=== PATIENT | male | born 1955 | race Caucasian/White ===

== ENCOUNTER 2017-08-23 12:39 | Emergency (ER) | payer OTHER ==
--- NOTE | 2017-08-23 12:56 | EDPHY ---
H & P Stated Complaint: Left CP radiating to left arm since last night. Time Seen by Provider: 08/23/17 12:56 HPI/ROS: CHIEF COMPLAINT: Substernal chest pain HISTORY OF PRESENT ILLNESS: The patient presents to the ED with a 1 day history of substernal chest pain. The patient reports a history of coronary artery disease. He reports a stent x2 approximately 6 years ago. The patient reports his last nuclear stress test was approximately 2 years ago and normal. The patient does have episodic chest pain but states this pain was slightly longer duration. It began at 5 o'clock last night. It has not resolved. The patient denies any pleuritic chest pain. He has had a dry nonproductive cough with this pain. The patient exercises on a daily basis. He has had no history of exertional chest pain or shortness of breath. The patient denies any complaints of fever. He has been compliant with his regular medications. He currently rates his left-sided substernal pain as a 5/10. REVIEW OF SYSTEMS: A comprehensive 10 point review of systems is otherwise negative aside from elements mentioned in the history of present illness. Source: Patient Exam Limitations: No limitations - Personal History Current Tetanus Diphtheria and Acellular Pertussis (TDAP): Yes - Medical/Surgical History Hx Asthma: No Hx Chronic Respiratory Disease: No Hx Diabetes: No Hx Cardiac Disease: Yes Hx Renal Disease: No Hx Cirrhosis: No Hx Alcoholism: No Hx HIV/AIDS: No Hx Splenectomy or Spleen Trauma: No Other PMH: 2 x heart stents - 2011. - Social History Smoking Status: Never smoked - Physical Exam Exam: General Appearance: Alert, no distress Eyes: Pupils equal and round no pallor or injection ENT, Mouth: Mucous membranes moist Respiratory: There are no retractions, lungs are clear to auscultation Cardiovascular: Regular rate and rhythm Gastrointestinal: Abdomen is soft and nontender, no masses, bowel sounds normal Neurological: A&O, normal motor function, normal sensory exam, normal cranial nerves Skin: Warm and dry, no rashes Musculoskeletal: Neck is supple nontender Extremities: symmetrical, full range of motion Constitutional: Initial Vital Signs Temperature (C) 36.4 C 08/23/17 12:40 Heart Rate 63 08/23/17 12:40 Respiratory Rate 16 08/23/17 12:40 Blood Pressure 149/86 H 08/23/17 12:40 O2 Sat (%) 96 08/23/17 12:40 O2 Delivery Mode Room Air Allergies/Adverse Reactions: No Known Allergies Allergy (Unverified 08/27/13 22:26) Home Medications: Medication Instructions Recorded Ascorbic Acid [C-500] 500 mg PO DAILY 08/15/12 Cholecalciferol (Vitamin D3) 1,000 unit PO DAILY 08/15/12 [Vitamin D3] Glucosamine Sulfate [Glucosamine 1,000 mg PO DAILY 08/15/12 Sulfate 500 MG (*)] Levothyroxine [Synthroid 75 mcg 75 mcg PO DAILY06 08/15/12 (*)] Multivitamins [Multivitamin (*)] 1 each PO DAILY 08/15/12 lamoTRIgine [LamICTAL 100 MG (*)] 150 mg PO DAILY 08/15/12 Aspirin EC [Aspirin EC 325 mg (*)] 325 mg PO DAILY #100 tab 08/16/12 Rosuvastatin Calcium [Crestor 5mg] 5 mg PO DAILY #30 08/16/12 Herbals/Supplements -Info Only 1 ea PO HS 09/16/13 Ramipril [Altace 2.5mg (RX)] 2.5 mg PO DAILY 09/16/13 Medical Decision Making - Diagnostics EKG Interpretation: EKG: Complete interpretation has been separately recorded in the [employer] archive. Summary impression: Sinus rhythm Imaging Results: Imaging Impressions Chest X-Ray 08/23/17 13:49 Impression: Minimal airways disease. Otherwise nothing acute. ED Course/Re-evaluation: The patient presents to the ED with greater than 24 hours of atypical constant nonexertional chest pain. The patient's D-dimer test is negative which I feel adequately excludes pulmonary embolism as the patient is low risk by Wells criteria. The patient's EKG is normal. Despite greater than 12 hours of symptoms his troponin is also normal. The patient is nontoxic and well- appearing. The patient's chest x-ray demonstrates no evidence of pneumonia, pneumothorax or obvious mass. Patient presents to the ED with very atypical nonexertional chest pain. At this point time I clinical suspicion for acute coronary syndrome is quite low. I do feel the patient can follow up with Cardiology for consideration of a stress test within the next day. I did discuss this with the patient's regular Cardiology service they will be expecting his telephone call. The patient will return to the emergency department for more significant symptoms, difficulty breathing or other concerns. Differential Diagnosis: Differential diagnosis considered includes acute coronary syndrome, myocardial infarction, metabolic abnormality, dehydration, costochondritis - Data Points Laboratory Results: Laboratory Results 08/23/17 13:10 08/23/17 13:10 08/23/17 08/23/17 08/23/17 13:10 13:10 13:10 WBC 3.88 10^3/uL 10^3/uL (3.80-9.50) RBC 4.84 10^6/uL 10^6/uL (4.40-6.38) Hgb 14.7 g/dL g/dL (13.7-17.5) Hct 42.3 % % (40.0-51.0) MCV 87.4 fL fL (81.5-99.8) MCH 30.4 pg pg (27.9-34.1) MCHC 34.8 g/dL g/dL (32.4-36.7) RDW 13.0 % % (11.5-15.2) Plt Count 169 10^3/uL 10^3/uL (150-400) MPV 9.5 fL fL (8.7-11.7) Neut % (Auto) 60.5 % % (39.3-74.2) Lymph % (Auto) 30.4 % % (15.0-45.0) [place] % (Auto) 5.7 % % (4.5-13.0) Eos % (Auto) 2.3 % % (0.6-7.6) Baso % (Auto) 0.8 % % (0.3-1.7) Nucleat RBC Rel Count 0.0 % % (0.0-0.2) Absolute Neuts (auto) 2.35 10^3/uL 10^3/uL (1.70-6.50) Absolute Lymphs (auto) 1.18 10^3/uL 10^3/uL (1.00-3.00) Absolute Monos (auto) 0.22 10^3/uL L 10^3/uL (0.30-0.80) Absolute Eos (auto) 0.09 10^3/uL 10^3/uL (0.03-0.40) Absolute Basos (auto) 0.03 10^3/uL 10^3/uL (0.02-0.10) Absolute Nucleated RBC 0.00 10^3/uL 10^3/uL (0-0.01) Immature Gran % 0.3 % % (0.0-1.1) Immature Gran # 0.01 10^3/uL 10^3/uL (0.00-0.10) D-Dimer < 0.27 ug/mLFEU ug/mLFEU (0.00-0.50) Sodium 142 mEq/L mEq/L (134-144) Potassium 4.0 mEq/L mEq/L (3.5-5.2) Chloride 104 mEq/L mEq/L (97-110) Carbon Dioxide 27 mEq/l mEq/l (22-31) Anion Gap 11 mEq/L mEq/L (8-16) BUN 13 mg/dL mg/dL (7-23) Creatinine 1.0 mg/dL mg/dL (0.7-1.3) Estimated GFR > 60 Glucose 154 mg/dL H mg/dL (70-100) Calcium 9.1 mg/dL mg/dL (8.5-10.4) Troponin I < 0.012 ng/mL ng/mL (0.000-0.034) Departure - Departure Disposition: Home, Routine, Self-Care Clinical Impression: Chest pain Condition: Good Instructions: Chest Pain (ED) Additional Instructions: 1. Based upon the testing done in the Emergency Department today we see no evidence of a heart attack. 2. We are unable to fully exclude coronary artery disease based upon the testing available in the Emergency Department. 3. For this reason, we would like you to be seen by cardiology for consideration of additional testing within the next 3 days. 4. Please contact the clerical investigator you have been referred to schedule this appointment as soon as possible. Their offices are typically open from 8:30am- 5pm M-F. 5. Please return to the Emergency Department immediately for any recurrent chest pain, difficulty breathing or other concerns. Referrals: Sai Hearn MD [Medical Doctor] - As per Instructions
--- NOTE | 2017-08-23 13:00 | CPEKG ---
Heart Rate: 60 RR Interval: 1000 P-R Interval: 164 QRSD Interval: 104 QT Interval: 448 QTC Interval: 448 P [place]: 47 QRS [place]: 47 T Wave [place]: 39 EKG Severity - BORDERLINE ECG - EKG Impression: SINUS RHYTHM Electronically Signed By: Denver Ricks 23-Aug-2017 13:11:03
[2017-08-23 13:20] LABS: % IMMATURE GRANULYOCYTES 0.3 % (0.0-1.1); ABSOLUTE IMMATURE GRANULOCYTES 0.01 10^3/uL (0.00-0.10); ADD DIFF? NO; ADD MORPH? NO; ADD SCAN? NO; ATYPICAL LYMPHOCYTE FLAG 0 (0-99); FRAGMENT RBC FLAG 0 (0-99); HEMATOCRIT 42.3 % (40.0-51.0); HEMOGLOBIN 14.7 g/dL (13.7-17.5); LEFT SHIFT FLG 0 (0-99); LIPEMIA HEMOLYSIS FLAG 90 (0-99); MEAN CELL HEMOGLOBIN 30.4 pg (27.9-34.1); MEAN CELL HEMOGLOBIN CONCENTR. 34.8 g/dL (32.4-36.7); MEAN CELL VOLUME 87.4 fL (81.5-99.8); MEAN PLATELET VOLUME 9.5 fL (8.7-11.7); PLATELET CLUMPS FLAG 0 (0-99); PLATELET COUNT 169 10^3/uL (150-400); RED BLOOD CELL COUNT 4.84 10^6/uL (4.40-6.38)
[2017-08-23 13:32] LABS: ANION GAP 11 mEq/L (8-16); CALCIUM 9.1 mg/dL (8.5-10.4); CARBON DIOXIDE 27 mEq/l (22-31); CHLORIDE 104 mEq/L (97-110); GLOMERULAR FILTRATION RATE > 60; GLUCOSE 154 mg/dL (70-100); SODIUM 142 mEq/L (134-144)
[2017-08-23 13:44] LABS: TROPONIN I < 0.012 ng/mL (0.000-0.034)
[2017-08-23 15:32] VITALS: BP 149/79; PULSE 53; RESP 18; TEMP 98.1; O2SAT 94
== END 2017-08-23 15:32 | disposition home or self-care (01) ==
DX: R07.9 Chest pain, unspecified (principal); Z79.82 Long term (current) use of aspirin